=== PATIENT | female | born 1955 | race Caucasian/White ===

== ENCOUNTER 2017-03-04 11:02 | Inpatient (IN) | payer OTHER, MEDICAID ==
[~2017-03-04] VITALS: Ht 172.7 cm; Wt 60.8 kg
[2017-03-04] MEDS ORDERED: CLIN300C8 PO (11:27)
[2017-03-04] MEDS ORDERED: HYDR-3240 PO (11:27)
[2017-03-04] MEDS ORDERED: KETOROLAC 30 MG/1 ML ONE (11:50)
[2017-03-04] MEDS ORDERED: LORazepam 2 MG/ML, 1ML ONE ×2 (11:50→17:25)
[2017-03-04] MEDS ORDERED: LORazepam 2 MG/ML, 1ML IVPush ONE (12:00)
[2017-03-04] MEDS ORDERED: SODIUM CHLORIDE FLUSH 10ML SYR IVF ONE (12:00)
[2017-03-04] MEDS ORDERED: SODIUM CHLORIDE 0.9% 1,000ML IVBOLUS ONE (12:00)
[2017-03-04] MEDS ORDERED: KETOROLAC 30 MG/1 ML IVPush ONE (12:00)
[2017-03-04] MEDS ORDERED: AMPICILLIN/SULBACTAM 3 GM in SODIUM CHLORIDE 0.9% 100 ML IV ONE (12:00)
[2017-03-04] MEDS ORDERED: SODIUM CHLORIDE 0.9% 1,000 ML IV SCH (12:21)
[2017-03-04] MEDS ORDERED: ONDANSETRON 2MG/ML, 2ML IVPush PRN ×2 (12:30→20:00)
[2017-03-04] MEDS ORDERED: morphine SULFATE 10 MG/ML, 1ML IVPush PRN (12:30)
[2017-03-04] MEDS ORDERED: LABETALOL 5MG/ML, 20ML IVPush PRN (12:30)
[2017-03-04] MEDS ORDERED: morphine SULFATE 10 MG/ML, 1ML ONE ×2 (12:35→13:19)
[2017-03-04 13:30] VITALS: BP 143/75
[2017-03-04] MEDS: NICOTINE 21 MG/24 HR PATCH.TD24 TD SCH ×3 (14:47→15:00)
[2017-03-04] MEDS ORDERED: LORazepam 2 MG/ML, 1ML IVPush STA (17:26)
[2017-03-04] MEDS: AMPICILLIN/SULBACTAM 3 GM in SODIUM CHLORIDE 0.9% 100 ML IV SCH ×2 (17:27→23:26)
[2017-03-04] MEDS ORDERED: BACITRACIN OINT 500U/GM, 15 GM ONE (19:07)
[2017-03-04] MEDS ORDERED: BUPIVACAINE/PF 0.25% ONE (19:07)
[2017-03-04] MEDS ORDERED: EPINEPHRINE 1 MG/ML, 1ML ONE (19:08)
[2017-03-04] MEDS ORDERED: BACITRACIN 50,000 UNIT ONE (19:08)
[2017-03-04] MEDS ORDERED: FENTANYL PF 100 MCG/2ML ONE ×3 (19:09→20:09)
[2017-03-04] MEDS ORDERED: MIDAZOLAM 1 MG/ML, 2ML ONE (19:15)
[2017-03-04] MEDS ORDERED: ROCURONIUM 10 MG/ML,10ML ONE (19:23)
[2017-03-04] MEDS ORDERED: DEXAMETHASONE 4 MG/ML, 1ML ONE (19:38)
[2017-03-04] MEDS ORDERED: ONDANSETRON 2MG/ML, 2ML ONE (19:38)
[2017-03-04] MEDS ORDERED: PROPOFOL 10 MG/ML, 20ML ONE (19:38)
[2017-03-04] MEDS ORDERED: MEPERIDINE/PF 25MG/0.5ML IVPush PRN (20:00)
[2017-03-04] MEDS ORDERED: HYDROmorphone 1 MG/ML, 1ML IV PRN (20:00)
[2017-03-04] MEDS ORDERED: PROMETHAZINE 25 MG/ML, 1ML IV PRN (20:00)
[2017-03-04] MEDS ORDERED: MIDAZOLAM 1 MG/ML, 2ML IV PRN (20:00)
[2017-03-04] MEDS ORDERED: ALBUTEROL/IPRATROPIUM 2.5MG/0.5MG, 3 ML NPPB PRN (20:00)
[2017-03-04] MEDS ORDERED: hydrALAzine 20 MG/ML, 1ML IV PRN (20:00)
[2017-03-04] MEDS ORDERED: LABETALOL 5MG/ML, 20ML IV PRN (20:00)
[2017-03-04] MEDS ORDERED: ALBUTEROL SULFATE 2.5 MG/3 ML NPPB PRN (20:00)
[2017-03-04] MEDS ORDERED: OXYcodone 5 MG/5 ML ORAL.SOL UDC PO PRN (20:00)
[2017-03-04] MEDS ORDERED: ACETAMINOPHEN 325 MG TABLET PO PRN (20:00)
[2017-03-04] MEDS ORDERED: OXYcodone 5 MG/5 ML ORAL.SOL UDC ONE (20:08)
[2017-03-04] MEDS ORDERED: ACETAMINOPHEN 650 MG/20.3 ML UDC ONE (20:08)
[2017-03-04] MEDS ORDERED: ACETAMINOPHEN 325 MG TABLET ONE (20:09)
[2017-03-04] MEDS: FENTANYL PF 100 MCG/2ML IV PRN ×2 (20:15→20:30)
[2017-03-04 21:18] VITALS: BP 132/84
[2017-03-04] MEDS ORDERED: MORPHINE SULFATE 4 MG/ML, 1ML IV PRN (23:00)
[2017-03-04] MEDS: LACTATED RINGERS 1,000 ML IV SCH (23:26)
[2017-03-05] MEDS: BACITRACIN OINT 500U/GM, 15 GM TP SCH ×4 (00:50→21:00)
[2017-03-05] MEDS: NICOTINE 21 MG/24 HR PATCH.TD24 TD SCH (01:25)
[2017-03-05 02:09] VITALS: BP 130/82
[2017-03-05] MEDS: OXYcodone/APAP 10/325MG TABLET PO PRN (04:12)
[2017-03-05] MEDS: AMPICILLIN/SULBACTAM 3 GM in SODIUM CHLORIDE 0.9% 100 ML IV SCH ×4 (05:12→22:56)
[2017-03-05 06:06] LABS: BASOPHILS # (AUTO) 0.01 x10^3/uL (0-0.1); BASOPHILS % (AUTO) 0 % (0-1); EOSINOPHILS % (AUTO) 0 % (1-7); LYMPHOCYTES # (AUTO) 0.81 x10^3/uL (1-3.4); LYMPHOCYTES % (AUTO) 7 % (22-44); MD NO; MEAN CORPUSCULAR HGB CONC 33.3 g/dL (32.4-35.8); MEAN CORPUSCULAR VOLUME 93.2 fL (80-100); MONOCYTES # (AUTO) 0.29 x10^3/uL (0.2-0.8); MONOCYTES % (AUTO) 2 % (2-9); NEUTROPHILS # (AUTO) 11.33 x10^3/uL (1.8-6.8); NEUTROPHILS % (AUTO) 91 % (42-75); PLATELET COUNT 333 x10^3/uL (130-400); RED BLOOD COUNT 4.41 x10^6/uL (3.82-5.3); RED CELL DISTRIBUTION WIDTH 14.9 % (9.6-15.2)
[2017-03-05] MEDS: LACTATED RINGERS 1,000 ML IV SCH ×2 (07:20→15:40)
[2017-03-05 07:21] VITALS: BP 133/84
[2017-03-05] MEDS: SENNA/DOCUSATE TABLET PO SCH (09:00)
[2017-03-05] MEDS: HYDROcodone/APAP 5/325 TABLET PO PRN ×3 (09:23→20:39)
[2017-03-05] MEDS: ONDANSETRON 2MG/ML, 2ML IV PRN ×2 (09:23→13:30)
[2017-03-05 13:07] VITALS: BP 139/81
[2017-03-05] MEDS: OMEPRAZOLE 20 MG CAPSULE.DR PO SCH (15:31)
[2017-03-05 19:10] VITALS: BP 149/85
[2017-03-06] MEDS: HYDROcodone/APAP 5/325 TABLET PO PRN ×3 (00:40→11:02)
[2017-03-06 04:21] VITALS: BP 139/88
[2017-03-06] MEDS: AMPICILLIN/SULBACTAM 3 GM in SODIUM CHLORIDE 0.9% 100 ML IV SCH ×2 (04:33→10:57)
[2017-03-06 05:51] LABS: BASOPHILS # (AUTO) 0.12 x10^3/uL (0-0.1); BASOPHILS % (AUTO) 1 % (0-1); EOSINOPHILS # (AUTO) 0.03 x10^3/uL (0-0.4); EOSINOPHILS % (AUTO) 0 % (1-7); LYMPHOCYTES # (AUTO) 3.54 x10^3/uL (1-3.4); LYMPHOCYTES % (AUTO) 29 % (22-44); MD NO; MEAN CORPUSCULAR HEMOGLOBIN 31.5 pg (27.0-34.8); MEAN CORPUSCULAR HGB CONC 33.9 g/dL (32.4-35.8); MEAN CORPUSCULAR VOLUME 92.8 fL (80-100); MEAN PLATELET VOLUME 7.9 fL (7.4-10.4); MONOCYTES # (AUTO) 1.24 x10^3/uL (0.2-0.8); MONOCYTES % (AUTO) 10 % (2-9); NEUTROPHILS # (AUTO) 7.41 x10^3/uL (1.8-6.8); NEUTROPHILS % (AUTO) 60 % (42-75); PLATELET COUNT 332 x10^3/uL (130-400); RED BLOOD COUNT 4.13 x10^6/uL (3.82-5.3)
[2017-03-06] MEDS: OXYcodone/APAP 10/325MG TABLET PO PRN ×2 (07:55→13:18)
[2017-03-06] MEDS: BACITRACIN OINT 500U/GM, 15 GM TP SCH (07:56)
[2017-03-06] MEDS: SENNA/DOCUSATE TABLET PO SCH (07:56)
[2017-03-06] MEDS: OMEPRAZOLE 20 MG CAPSULE.DR PO SCH (07:56)
[2017-03-06] MEDS: LACTATED RINGERS 1,000 ML IV SCH ×2 (07:56)
[2017-03-06 08:29] VITALS: BP 125/79
[2017-03-06] MEDS: NICOTINE 21 MG/24 HR PATCH.TD24 TD SCH (10:57)
[2017-03-06] MEDS ORDERED: HYDR-3240 PO (11:36)
[2017-03-06] MEDS ORDERED: PNEUMOCOCCAL 23 VACCINE IM-VACC ONE (13:00)
== END 2017-03-06 13:30 | disposition home or self-care (01) | DRG 133 ==
LOC: ED 12:20 → EDIP 12:21 → 4NOR 13:13
PROVIDERS: ADMIT Hospitalist; ATTEND Hospitalist
PROC: 0W960ZZ Drainage of Neck, Open Approach (ICD-10-PCS; principal; 2017-03-04 19:00)
DX: K12.2 Cellulitis and abscess of mouth (principal); L02.11 Cutaneous abscess of neck; L03.221 Cellulitis of neck; K04.7 Periapical abscess without sinus; F12.90 Cannabis use, unspecified, uncomplicated; J44.9 Chronic obstructive pulmonary disease, unspecified; F43.10 Post-traumatic stress disorder, unspecified; R45.1 Restlessness and agitation; F17.210 Nicotine dependence, cigarettes, uncomplicated; F41.9 Anxiety disorder, unspecified; S02.5XXA Fracture of tooth (traumatic), initial encounter for closed fracture; X58.XXXA Exposure to other specified factors, initial encounter; M54.9 Dorsalgia, unspecified; G89.29 Other chronic pain; Z88.8 Allergy status to other drugs, medicaments and biological substances; Z79.899 Other long term (current) drug therapy; Y93.89 Activity, other specified; Y92.89 Other specified places as the place of occurrence of the external cause; Y99.8 Other external cause status
CPT/HCPCS: 36415; 85025; 87070; 87075; 87205; 90732; 96365; 96375; J0171; J0295; J1100; J1885; J2250; J2405; J2704; J3010; J3490; J2060; J2270; J7030; J7120

== ENCOUNTER 2017-12-04 10:09 | Emergency (ER) | payer MEDICARE, MEDICAID ==
[~2017-12-04] VITALS: Ht 162.6 cm; Wt 52.0 kg
[~2017-12-04 10:09] MED LIST: CLIN300C8 PO; HYDR-3240 PO
[2017-12-04 10:11] VITALS: BP 150/114
[2017-12-04] MEDS ORDERED: BUPIVACAINE/PF-EPI 0.25% 1:200K SQ ONE (10:30)
[2017-12-04] MEDS ORDERED: BUPIVACAINE 0.25% ONE (10:34)
== END 2017-12-04 11:13 ==
LOC: ED 10:37
DX: K08.89 Other specified disorders of teeth and supporting structures (principal); J44.9 Chronic obstructive pulmonary disease, unspecified; F17.200 Nicotine dependence, unspecified, uncomplicated; F43.10 Post-traumatic stress disorder, unspecified
CPT/HCPCS: 64400; 96372; 99284